=== PATIENT | male | born 1995 | race Hispanic/Latino ===

== ENCOUNTER 2017-06-04 08:38 | Emergency (ER) | payer SELFPAY ==
[2017-06-04] MEDS ORDERED: Bacitracin Zinc 1 Packet ONE (09:20)
== END 2017-06-04 09:30 | disposition home or self-care (01) ==
LOC: ERS 08:38
DX: S61.200A Unspecified open wound of right index finger without damage to nail, initial encounter (principal); X58.XXXA Exposure to other specified factors, initial encounter
CPT/HCPCS: 99284